=== PATIENT | male | born 1985 | race Caucasian/White ===

== ENCOUNTER 2020-06-02 11:33 | Emergency (ER) | payer BC, OTHER ==
[2020-06-02 11:54] VITALS: BP 122/65; PULSE 88; TEMP 98.6; BMI 30.5
[2020-06-02] MEDS ORDERED: IBUPROFEN 600 MG TABLET (FP) PO ONE (13:05)
== END 2020-06-02 13:11 | disposition home or self-care (01) ==
LOC: JERFT 11:33
PROC: 2W3CX1Z Immobilization of Right Lower Arm using Splint (ICD-10-PCS; principal; 2020-06-02)
DX: S63.501A Unspecified sprain of right wrist, initial encounter (principal)
CPT/HCPCS: 73090-TC-RT-FY; 99284-25